=== PATIENT | male | born 1975 | race Caucasian/White ===

== ENCOUNTER → 2017-06-27 | Outpatient (CLI) | payer BC ==
[~2017-06-27] MED LIST: CIALIS; GUAIFEN-PSE 6001 TER PO; LISINOPRIL; LISINOPRIL/HCTZ1 TA1 PO; LISINOPRIL10 MG PO; MOTRIN 800800 MG/TAB PO; NAPROSYN500 MG PO; NO HOME MEDICATIONS; NORCO 325 MG-51 TAB PO; PERCOCET 325 MG1 TA2 PO; PROTONIX 40MG T40 MG PO; VALIUM5 MG PO; VICODIN 5/5001 UDTAB PO; ZOCOR; ZOCOR 10MG10 MG PO
== END ==
LOC: COL.RAD 08:42
DX: M75.102 Unspecified rotator cuff tear or rupture of left shoulder, not specified as traumatic (principal); M75.52 Bursitis of left shoulder; M75.92 Shoulder lesion, unspecified, left shoulder

== ENCOUNTER 2021-08-26 21:11 | Emergency (ER) | payer BC ==
[~2021-08-26] VITALS: Ht 172.7 cm; Wt 100.0 kg
[2021-08-26 21:24] VITALS: TEMP 98
[2021-08-26 21:50] LABS: BASO # 0.1 K/mm3 (0.0-0.2); BASO % 0.5 % (0.0-2.0); EOS # 0.2 K/mm3 (0.0-0.7); EOS % 1.3 % (0.0-4.0); GRAN # 9.2 K/mm3 (1.4-6.5); GRAN % 67.4 % (42.2-75.2); HEMATOCRIT 41.6 % (42.0-52.0); HEMOGLOBIN 15.2 g/dl (13.5-18.0); LYMPH # 3.2 K/mm3 (1.2-3.4); LYMPH % 23.4 % (20.0-51.0); MEAN CELL VOLUME 86 fl (80.0-100.0); MEAN CORPUSCULAR HEMOGLOBIN 31 pg (27-31); MEAN CORPUSCULAR HGB CONC 37 g/dl (33.0-37.0); MEAN PLATELET VOLUME 9.7 fl (7.4-10.4); MONO # 0.9 K/mm3 (0.1-0.6); MONO % 6.9 % (1.7-9.3); PLATELET COUNT 263 K/mm3 (130-400); RED BLOOD COUNT 4.84 M/mm3 (4.20-5.60); REDCELL DISTRIBUTION WIDTH-CV 12.9 % (11.5-14.5)
[2021-08-26 21:53] LABS: COLLECTION METHOD CLEAN CATCH
[2021-08-26 22:01] LABS: PH 7 (5-8); SQUAMOUS EPITHELIAL None Seen /hpf (0-10); URINE APPEARANCE Clear (CLEAR/HAZY); URINE BACTERIA None Seen /hpf (NONE SEEN); URINE BILIRUBIN Negative (NEGATIVE); URINE BLOOD Negative (NEGATIVE); URINE COLOR Straw (YELLOW); URINE GLUCOSE Negative (NEGATIVE); URINE KETONE Negative (NEGATIVE); URINE LEUKOCYTE ESTERASE Negative (NEGATIVE); URINE NITRATE Negative (NEGATIVE); URINE PROTEIN(semi-quant) Negative (NEGATIVE); URINE RBC 0-2 /hpf (0-2); URINE UROBILINOGEN Negative (NEGATIVE)
[2021-08-26 22:10] LABS: ALBUMIN 4.4 gm/dL (3.5-5.0); BILIRUBIN,TOTAL 0.9 mg/dL (0.2-1.2); CALCIUM 9.8 mg/dL (8.4-10.2); CREATININE, serum 1.5 mg/dL (0.72-1.25); POTASSIUM 3.7 mmol/L (3.5-4.5); TOTAL PROTEIN 7.8 gm/dL (6.2-8.1)
[2021-08-27] MEDS ORDERED: ZOFRAN ODT4 MG PO (00:49)
[2021-08-27] MEDS ORDERED: NORCO 325 MG-51 TAB PO (00:49)
[2021-08-27 01:03] VITALS: BP 143/88; PULSE 84
== END 2021-08-27 01:04 | disposition home or self-care (01) ==
LOC: COL.ER 21:11
PROVIDERS: Nurse Practitioner Primary Care
DX: K85.90 Acute pancreatitis without necrosis or infection, unspecified (principal); D72.829 Elevated white blood cell count, unspecified; R79.89 Other specified abnormal findings of blood chemistry; Z98.890 Other specified postprocedural states; Z28.310 Unvaccinated for COVID-19
CPT/HCPCS: J2270; J2405; J7030; Q9967